=== PATIENT | female | born 1930 | race Caucasian/White ===

== ENCOUNTER 2018-07-16 09:59 | Emergency (ER) | payer MEDICARE, BC ==
[~2018-07-16] VITALS: Ht 157.5 cm; Wt 64.9 kg
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
--- NOTE | 2018-07-16 10:35 | NUR ---
DR VELAZQUEZ AT BEDSIDE
--- NOTE | 2018-07-16 12:52 | NUR ---
Patient discharged to home in stable condition. Written and verbal after care instructions given. Patient verbalizes understanding of instruction.
[2018-07-16 12:56] VITALS: BP 126/72
== END 2018-07-16 12:59 | disposition home or self-care (01) ==
LOC: ER 10:04
DX: M54.5 Low back pain (principal); I10 Essential (primary) hypertension; Z88.5 Allergy status to narcotic agent; Z88.6 Allergy status to analgesic agent; Z88.4 Allergy status to anesthetic agent; Z91.018 Allergy to other foods; V49.49XA Driver injured in collision with other motor vehicles in traffic accident, initial encounter; Y93.89 Activity, other specified; Y92.410 Unspecified street and highway as the place of occurrence of the external cause; Y99.8 Other external cause status
CPT/HCPCS: 72100-TC